=== PATIENT | male | born 1995 | race Hispanic/Latino ===

== ENCOUNTER 2020-12-11 17:05 | Emergency (ER) | payer BC, MEDICAID ==
[~2020-12-11] VITALS: Ht 165.1 cm; Wt 81.6 kg
[2020-12-11 18:09] VITALS: BP 130/73
[2020-12-11] MEDS ORDERED: MAG/ALUM/SIMETH 30 ML UDCUP ONE (18:19)
[2020-12-11] MEDS ORDERED: ONDANSETRON 4MG TABLET ONE (18:19)
[2020-12-11 18:41] LABS: BASOPHILS % (AUTO) 0.6 % (0.0-5.0); EOSINOPHILS % (AUTO) 0.1 % (0.0-8.0); HEMATOCRIT 41.9 % (42-54); LYMPHOCYTES % (AUTO) 25.2 % (21.0-51.0); MEAN CORPUSCULAR HEMOGLOBIN 26.7 pg (27.0-33.0); MEAN CORPUSCULAR HGB CONC 33.2 g/dL (32.0-36.0); MEAN CORPUSCULAR VOLUME 80.4 fL (79-99); MONOCYTES % (AUTO) 5.2 % (3.0-13.0); NEUTROPHILS % (AUTO) 68.1 % (40.0-77.0); PLATELET COUNT (AUTO) 356 K/uL (130-400); RED BLOOD CELL COUNT(AUTO) 5.21 MIL/uL (4.50-6.20); WHITE BLOOD COUNT (AUTO) 8.6 K/uL (4.8-10.8)
[2020-12-11 18:51] LABS: CREATININE 0.8 mg/dL (0.5-1.5)
[2020-12-11 18:55] LABS: ALBUMIN 4.3 g/dL (3.5-5.0); BILIRUBIN,TOTAL 0.4 mg/dL (0.2-1.0); TOTAL PROTEIN, SERUM 8.2 g/dL (6.0-8.3)
== END 2020-12-11 23:52 | disposition left against medical advice (07) ==
LOC: EDH 17:05
DX: R07.89 Other chest pain (principal); Z53.21 Procedure and treatment not carried out due to patient leaving prior to being seen by health care provider
CPT/HCPCS: 36415; 80053; 82150; 83690; 84484; 85025; 93005; Q0162